=== PATIENT | male | born 2000 | race Two or more races ===

== ENCOUNTER 2024-08-22 21:36 | Emergency (ER) | payer OTHER ==
[~2024-08-22] VITALS: Ht 182.9 cm; Wt 77.1 kg
[2024-08-22 23:23] LABS: HEMATOCRIT 43.4 % (39.0-48.0); HEMOGLOBIN 15.2 g/dL (13-16.00); MEAN CELL VOLUME 87.1 fL (80.0-100.00); MEAN CORPUSCULAR HEMOGLOBIN 30.6 pg (27.00-32.0); MEAN CORPUSCULAR HGB CONC 35.1 g/dl (32.0-36.0); PLATELET COUNT 157 K/uL (150-450); RED BLOOD COUNT 4.98 M/uL (4.00-6.00); RED CELL DISTRIBUTION WIDTH 12.9 % (11.5-14.5)
[2024-08-22 23:35] LABS: CALCIUM 9.4 mg/dL (8.5-10.1); CREATININE SERUM 1.22 mg/dL (0.70-1.30); GFR 73.61; POTASSIUM 3.54 mEq/L (3.5-5.1)
== END 2024-08-23 01:07 | disposition home or self-care (01) ==
LOC: ER 21:36
PROVIDERS: General Practice
DX: J10.1 Influenza due to other identified influenza virus with other respiratory manifestations (principal); Z20.822 Contact with and (suspected) exposure to COVID-19